=== PATIENT | male | born 1960 | race American Indian/Alaskan Native ===

== ENCOUNTER 2016-08-17 09:31 | Emergency (ER) | payer MEDICAID ==
[2016-08-17 09:31] VITALS: BMI 27.1
[2016-08-17] MEDS ORDERED: Sodium Chloride 0.9% 1,000 ML IV ONE (09:42)
--- NOTE | 2016-08-17 09:48 | C.PDOC ---
History Of Present Illness 55 y/o male pmhx alcohol abuse, HTN, HIV, brain aneurysm presents to the ED with complaints of upper abdominal pain. Pt reports history of pancreatitis, "thinks it's back again." Pt also reports vomiting and diarrhea today. Last drink last night. Denies fever, chills, chest pain, SOB or any other complaints. PSHx defibrillator, craniotomy. Time Seen by Provider: 08/17/16 09:32 Chief Complaint (Nursing): Abdominal Pain History Per: Patient History/Exam Limitations: no limitations Onset/Duration Of Symptoms: Days Current Symptoms Are (Timing): Still Present Severity: Moderate Radiation Of Pain To:: None Quality Of Discomfort: "Pain" Associated Symptoms: Vomiting, Diarrhea. denies: Fever, Chest Pain Exacerbating Factors: None Alleviating Factors: None Recent travel outside of the [place]: No Past Medical History Reviewed: Historical Data, Nursing Documentation, Vital Signs Vital Signs: Last Vital Signs Temp 98.3 F 08/17/16 12:56 Pulse 77 08/17/16 12:56 Resp 20 08/17/16 12:56 BP 151/99 H 08/17/16 12:56 Pulse Ox 100 08/17/16 12:56 - Medical History PMH: CHF, HIV (2005), HTN, Pancreatitis (Chronic) Surgical History: Pacemaker (Left chest wall) - [facility] Procedures ALCOHOL DETOXIFICATION (12/03/01) APPLICATION OF SPLINT (12/06/99) CLOSURE SKIN & SUBCUTANEOUS NEC (09/06/03) CONTINUOUS INVASIVE MECHANICAL VENTILATION <96 CONSEC HRS (11/13/14) DX ULTRASOUND-DIGESTIVE (12/16/11) ENDOSCOP INSERTION OF STENT (TUBE) INTO BILE DUCT (12/16/11) ENDOSCOPIC REMOVAL OF STONE(S) FROM BILIARY TRACT (12/16/11) ESOPHAGOGASTRODUODENOSCOPY [EGD] W/CLOSED BIOPSY (12/16/11) EXCISION OF RIGHT LARGE INTESTINE, ENDO, DIAGN (10/28/15) INCISE CEREBRAL MENINGES (11/13/14) INJECT/INFUSE NEC (09/11/03) INSERT ENDOTRACHEAL TUBE (11/13/14) NEBULIZER THERAPY (01/30/02) SERUM TRANSFUSION NEC (11/13/14) TETANUS TOXOID ADMINIST (09/05/03) Family History: States: Unknown Family Hx - Social History Hx Tobacco Use: Yes Hx Alcohol Use: Yes (Pt stated only on weekends) Hx Substance Use: No (Former use of cocaine) - Immunization History Hx Tetanus Toxoid Vaccination: (not sure) Hx Influenza Vaccination: Yes (2016) Hx Pneumococcal Vaccination: Yes Review Of Systems Constitutional: Negative for: Fever, Chills Cardiovascular: Negative for: Chest Pain Respiratory: Negative for: Shortness of Breath Gastrointestinal: Positive for: Vomiting, Abdominal Pain, Diarrhea Physical Exam - Physical Exam Appears: Non-toxic, No Acute Distress Skin: Warm, Dry, No Rash Head: Atraumatic, Normacephalic Oral Mucosa: Moist Neck: Normal, Normal ROM, Supple Chest: Symmetrical, No Tenderness Cardiovascular: Rhythm Regular, No Murmur Respiratory: Normal Breath Sounds, No Rales, No Rhonchi, No Wheezing Gastrointestinal/Abdominal: Soft, Tenderness (upper abdomen, L>R), No Guarding, No Rebound Extremity: Normal ROM Extremity: Bilateral: Atraumatic Neurological/Psych: Oriented x3, Normal Speech Gait: Steady ED Course And Treatment - Laboratory Results Result Diagrams: 08/17/16 09:56 08/17/16 09:56 Lab Interpretation: No Acute Changes Progress Note: Plan: labs, toradol, zofran, fluids. Treated with additional ativan 1 mg IV and Morphine 4 mg IV. On re-evaluation feeling better, texting on phone in no distress Reassessment Condition: Improved Disposition Counseled Patient/Family Regarding: Studies Performed, Diagnosis, Need For Followup - Disposition Referrals: [facility] [Outside] [facility] [Outside] Disposition: HOME/ ROUTINE Disposition Time: 13:00 Condition: STABLE Additional Instructions: Follow up with PMD or clinic for further evaluation Prescriptions: Famotidine [Pepcid AC] 10 mg PO BID #20 tablet Instructions: Gastroenteritis (ED) - POA Present On Arrival: None - Clinical Impression Clinical Impression: Nausea, Vomiting, Constipation - PA / INSURANCE SPECIAL AGENT / Resident Statement MD/DO has reviewed & agrees with the documentation as recorded. - Scribe Statement The provider has reviewed the documentation as recorded by the Scribsarah Becerril All medical record entries made by the Scribe were at my direction and personally dictated by me. I have reviewed the chart and agree that the record accurately reflects my personal performance of the history, physical exam, medical decision making, and the department course for this patient. I have also personally directed, reviewed, and agree with the discharge instructions and disposition.
[2016-08-17 09:49] VITALS: O2SAT 100
[2016-08-17 09:59] LABS: BASO % 0.4 % (0.0-2.0); EOS % 0.3 % (0.0-4.0); HEMATOCRIT 41.5 % (35.0-51.0); LYMPH # 1.1 K/uL (1.0-4.3); LYMPH % 19.5 % (20.0-40.0); MEAN CORPUSCULAR HGB CONC 33.7 g/dL (33.0-37.0); MEAN PLATELET VOLUME 8.2 fL (7.2-11.7); MONO # 0.6 K/uL (0.0-0.8); MONO % 10.8 % (0.0-10.0); WHITE BLOOD COUNT 5.5 K/uL (4.8-10.8)
[2016-08-17] MEDS ORDERED: Sodium Chloride 0.9% 1,000 ML ONE (09:59)
[2016-08-17 10:07] LABS: CHLORIDE 89 mmol/L (98-107)
[2016-08-17 10:08] LABS: POTASSIUM 4.3 mmol/L (3.6-5.2); SODIUM 135 mmol/L (132-148)
[2016-08-17 10:10] LABS: ALB/GLOB RATIO 1.9 (1.0-2.1); ALKALINE PHOSPHATASE 55 U/L (38-126); AST/SGOT 62 U/L (17-59); BILIRUBIN,TOTAL 0.7 mg/dL (0.2-1.3); BLOOD UREA NITROGEN 7 mg/dL (9-20); CARBON DIOXIDE 34 mmol/L (22-30); GFR AFRICAN-AMERICAN > 60; TOTAL PROTEIN 8.7 g/dL (6.3-8.3)
[2016-08-17 10:11] LABS: ALCOHOL SERUM < 10 mg/dl (0-10); ALT/SGPT 35 U/L (21-72); CALCIUM 9.7 mg/dl (8.6-10.4); GLUCOSE,RANDOM 160 mg/dL (75-110)
[2016-08-17 10:34] LABS: RBC URINE 1 /hpf (0-3); URINE BILIRUBIN NEGATIVE (NEGATIVE); URINE BLOOD NEGATIVE (NEGATIVE); URINE COLOR Yellow (YELLOW); URINE GLUCOSE (UA) 1+ mg/dL (Normal); URINE KETONE NEGATIVE (NEGATIVE); URINE LEUKOCYTE ESTERASE NEG Leu/uL (Negative); URINE PROTEIN 3+ mg/dL (NEGATIVE); URINE UROBILINOGEN NORMAL mg/dL (0.2-1.0); WBC URINE < 1 /hpf (0-5)
[2016-08-17] MEDS ORDERED: Morphine 4 MG/ML VIAL ONE (10:51)
[2016-08-17 12:57] VITALS: BP 151/99; PULSE 77; RESP 20; TEMP 98.3
== END 2016-08-17 13:33 | disposition home or self-care (01) ==
LOC: C.ER 09:31
DX: R11.2 Nausea with vomiting, unspecified (principal); R10.10 Upper abdominal pain, unspecified
CPT/HCPCS: 80053; 80320; 81001; 83690; 85025; 96361; 96374; 96375; 99285; J1885; J2060; J2270; J2405; J7040

== ENCOUNTER 2017-06-30 15:21 | Emergency (ER) | payer MEDICAID ==
[2017-06-30 15:21] VITALS: BMI 23.0
[2017-06-30] MEDS ORDERED: Sodium Chloride 0.9% 1,000 ML IV ONE (16:22)
[2017-06-30] MEDS ORDERED: Morphine 4 MG/ML VIAL ONE (16:44)
[2017-06-30] MEDS ORDERED: Sodium Chloride 0.9% 1,000 ML ONE (16:44)
--- NOTE | 2017-06-30 16:47 | C.PDOC ---
History Of Present Illness 56 y/o male with history of Pancreatitis presents to ED with complaints of abdominal pain with associated nausea developed "hours ago". Patient admits to drinking ETOH everyday and thinks his "pancreatitis is acting up". Patient reports last drink was earlier today and denies fever, chills, diarrhea or any other complaints at this time. Time Seen by Provider: 06/30/17 15:32 Chief Complaint (Nursing): Abdominal Pain History Per: Patient History/Exam Limitations: no limitations Onset/Duration Of Symptoms: Hrs Current Symptoms Are (Timing): Still Present Location Of Pain/Discomfort: Epigastric Past Medical History Reviewed: Historical Data, Nursing Documentation, Vital Signs Vital Signs: Last Vital Signs Temp 97.8 F 06/30/17 18:45 Pulse 68 06/30/17 18:45 Resp 16 06/30/17 18:45 BP 153/89 H 06/30/17 18:45 Pulse Ox 99 07/03/17 07:49 - Medical History PMH: CHF, HIV (2005), HTN, Pancreatitis (Chronic) Surgical History: Pacemaker (Left chest wall) - [facility] Procedures ALCOHOL DETOXIFICATION (12/03/01) APPLICATION OF SPLINT (12/06/99) CLOSURE SKIN & SUBCUTANEOUS NEC (09/06/03) CONTINUOUS INVASIVE MECHANICAL VENTILATION <96 CONSEC HRS (11/13/14) DX ULTRASOUND-DIGESTIVE (12/16/11) ENDOSCOP INSERTION OF STENT (TUBE) INTO BILE DUCT (12/16/11) ENDOSCOPIC REMOVAL OF STONE(S) FROM BILIARY TRACT (12/16/11) ESOPHAGOGASTRODUODENOSCOPY [EGD] W/CLOSED BIOPSY (12/16/11) EXCISION OF RIGHT LARGE INTESTINE, ENDO, DIAGN (10/28/15) INCISE CEREBRAL MENINGES (11/13/14) INJECT/INFUSE NEC (09/11/03) INSERT ENDOTRACHEAL TUBE (11/13/14) NEBULIZER THERAPY (01/30/02) SERUM TRANSFUSION NEC (11/13/14) TETANUS TOXOID ADMINIST (09/05/03) Family History: States: No Known Family Hx - Social History Hx Tobacco Use: Yes Hx Alcohol Use: Yes Hx Substance Use: No (PT DENIES DRUG USE) - Immunization History Hx Tetanus Toxoid Vaccination: (not sure) Hx Influenza Vaccination: No Hx Pneumococcal Vaccination: No Review Of Systems Constitutional: Negative for: Fever, Chills Gastrointestinal: Positive for: Nausea, Abdominal Pain. Negative for: Vomiting , Diarrhea Musculoskeletal: Negative for: Back Pain Skin: Negative for: Rash Physical Exam - Physical Exam Appears: Non-toxic, No Acute Distress Skin: Warm, Dry, No Rash Head: Atraumatic, Normacephalic Oral Mucosa: Moist Neck: Normal ROM, Supple Cardiovascular: Rhythm Regular Respiratory: Normal Breath Sounds, No Rales, No Rhonchi, No Wheezing Gastrointestinal/Abdominal: Soft, Tenderness (Mild epigastric), No Guarding, No Rebound Back: No CVA Tenderness Extremity: Normal ROM, Capillary Refill (<2 seconds) Neurological/Psych: Oriented x3, Normal Speech, Normal Cognition ED Course And Treatment - Laboratory Results Result Diagrams: 06/30/17 17:09 06/30/17 17:09 O2 Sat by Pulse Oximetry: 99 (RA) Pulse Ox Interpretation: Normal Medical Decision Making Medical Decision Making: Plan: Blood work and CXR ordered. Morphine, Zofran, Protonix and IV fluids administered On re-exam, the patient reports improvement of symptoms. Lugs are CTA, heart is RRR, Abdomen is soft, non-tender and the patient is tolerating PO well. Patient was given information about outpatient alcohol detox. Disposition - Disposition Referrals: [facility] [Outside] Disposition: HOME/ ROUTINE Disposition Time: 18:33 Condition: GOOD Additional Instructions: follow up with the medical doctor/clinic within 1-2 days. Return if worsened. Prescriptions: Ondansetron ODT [Zofran ODT] 1 odt PO BID PRN #10 odt PRN Reason: Nausea/Vomiting Instructions: Gastritis Forms: [facility] (Persian) - Clinical Impression Clinical Impression: Epigastric abdominal pain, Alcohol abuse - PA / PRIVATE DUTY NURSE / Resident Statement MD/DO has reviewed & agrees with the documentation as recorded. - Scribe Statement The provider has reviewed the documentation as recorded by the Asiya Felton All medical record entries made by the Asiya were at my direction and personally dictated by me. I have reviewed the chart and agree that the record accurately reflects my personal performance of the history, physical exam, medical decision making, and the department course for this patient. I have also personally directed, reviewed, and agree with the discharge instructions and disposition.
[2017-06-30 17:12] LABS: BASO % 0.3 % (0.0-2.0); EOS % 0.9 % (0.0-4.0); HEMOGLOBIN 11.5 g/dL (12.0-18.0); LYMPH % 50.9 % (20.0-40.0); MEAN CELL VOLUME 97.1 fL (80.0-94.0); MEAN CORPUSCULAR HEMOGLOBIN 32.4 pg (27.0-31.0); MEAN CORPUSCULAR HGB CONC 33.4 g/dL (33.0-37.0); MEAN PLATELET VOLUME 8.3 fL (7.2-11.7); MONO # 0.4 K/uL (0.0-0.8); MONO % 9.9 % (0.0-10.0); NEUT # 1.5 K/uL (1.8-7.0); RBC 3.54 Mil/uL (4.40-5.90); RED CELL DISTRIBUTION WIDTH 14.4 % (11.5-14.5); WHITE BLOOD COUNT 3.9 K/uL (4.8-10.8)
--- NOTE | 2017-06-30 17:17 | RAD ---
PROCEDURE: CHEST RADIOGRAPH, 1 VIEW HISTORY: abd pain COMPARISON: Chest radiograph dated 01/19/2017. FINDINGS: LUNGS: Clear. PLEURA: No pneumothorax or pleural fluid seen. CARDIOVASCULAR: Left subclavian access AICD/ pacemaker redemonstrated. Cardiomediastinal silhouette stably prominent. OSSEOUS STRUCTURES: Unchanged. VISUALIZED UPPER ABDOMEN: Normal. OTHER FINDINGS: None. IMPRESSION: No active disease.
[2017-06-30 17:40] LABS: ALB/GLOB RATIO 1.2 (1.0-2.1); ALT/SGPT 9 U/L (21-72); AST/SGOT 41 U/L (17-59); BLOOD UREA NITROGEN 6 mg/dL (9-20); CALCIUM 8.7 mg/dl (8.6-10.4); GFR AFRICAN-AMERICAN > 60; GFR NON-AFRICAN AMERICAN > 60; LIPASE 33 U/L (23-300)
[2017-06-30 18:57] VITALS: BP 153/89; PULSE 68; RESP 16; TEMP 97.8
[2017-07-03 07:49] VITALS: O2SAT 99
== END 2017-06-30 18:57 | disposition home or self-care (01) ==
LOC: C.ER 15:21
DX: R10.13 Epigastric pain (principal); F10.10 Alcohol abuse, uncomplicated; Y90.9 Presence of alcohol in blood, level not specified
CPT/HCPCS: 71045; 80053; 83690; 85025; 96361; 96374; 96375; 99285; C9113; J2270; J2405; J7040

== ENCOUNTER 2017-07-01 16:12 | Inpatient (IN) | payer MEDICAID ==
[2017-07-01 16:13] VITALS: BMI 23.0
[2017-07-01 16:57] LABS: BASO % 0.4 % (0.0-2.0); EOS % 1.2 % (0.0-4.0); HEMOGLOBIN 12.7 g/dL (12.0-18.0); LYMPH # 1.7 K/uL (1.0-4.3); LYMPH % 48.1 % (20.0-40.0); MEAN CELL VOLUME 97.2 fL (80.0-94.0); MEAN CORPUSCULAR HEMOGLOBIN 33.2 pg (27.0-31.0); MEAN CORPUSCULAR HGB CONC 34.2 g/dL (33.0-37.0); MONO # 0.4 K/uL (0.0-0.8); MONO % 12.1 % (0.0-10.0); NEUT # 1.3 K/uL (1.8-7.0); NEUT % 38.2 % (50.0-75.0); NRBC % 0.1 % (0.0-2.0); RBC 3.82 Mil/uL (4.40-5.90); RED CELL DISTRIBUTION WIDTH 14.7 % (11.5-14.5); WHITE BLOOD COUNT 3.5 K/uL (4.8-10.8)
[2017-07-01 17:15] LABS: ALB/GLOB RATIO 1.2 (1.0-2.1); ALBUMIN 4.1 g/dL (3.5-5.0); ALT/SGPT 9 U/L (21-72); AST/SGOT 44 U/L (17-59); BLOOD UREA NITROGEN 7 mg/dL (9-20); CALCIUM 8.9 mg/dl (8.6-10.4); GFR AFRICAN-AMERICAN > 60; GFR NON-AFRICAN AMERICAN > 60
--- NOTE | 2017-07-01 17:18 | C.PDOC ---
History Of Present Illness 56-year-old male, presents to the emergency department, pre screened for detox from alcohol. Patient called 911, and was brought in by ambulance. Denies any complaints at this time. Chief Complaint (Nursing): Substance Abuse History Per: Patient History/Exam Limitations: no limitations Past Medical History Reviewed: Historical Data, Nursing Documentation, Vital Signs Vital Signs: Last Vital Signs Temp 98.7 F 07/01/17 17:01 Pulse 75 07/01/17 17:01 Resp 16 07/01/17 17:01 BP 120/81 07/01/17 17:01 Pulse Ox 100 07/01/17 17:21 - Medical History PMH: CHF, HIV, HTN, Pancreatitis Denies: Depression, Diabetes, Hepatitis, Chronic Kidney Disease, Seizures, Sexually Transmitted Disease Surgical History: Pacemaker - [facility] Procedures ALCOHOL DETOXIFICATION (12/03/01) APPLICATION OF SPLINT (12/06/99) CLOSURE SKIN & SUBCUTANEOUS NEC (09/06/03) CONTINUOUS INVASIVE MECHANICAL VENTILATION <96 CONSEC HRS (11/13/14) DX ULTRASOUND-DIGESTIVE (12/16/11) ENDOSCOP INSERTION OF STENT (TUBE) INTO BILE DUCT (12/16/11) ENDOSCOPIC REMOVAL OF STONE(S) FROM BILIARY TRACT (12/16/11) ESOPHAGOGASTRODUODENOSCOPY [EGD] W/CLOSED BIOPSY (12/16/11) EXCISION OF RIGHT LARGE INTESTINE, ENDO, DIAGN (10/28/15) INCISE CEREBRAL MENINGES (11/13/14) INJECT/INFUSE NEC (09/11/03) INSERT ENDOTRACHEAL TUBE (11/13/14) NEBULIZER THERAPY (01/30/02) SERUM TRANSFUSION NEC (11/13/14) TETANUS TOXOID ADMINIST (09/05/03) Family History: States: No Known Family Hx - Social History Hx Tobacco Use: Yes Hx Alcohol Use: Yes Hx Substance Use: No - Immunization History Hx Tetanus Toxoid Vaccination: Yes Hx Influenza Vaccination: Yes Hx Pneumococcal Vaccination: Yes Review Of Systems Constitutional: Negative for: Fever, Chills Cardiovascular: Negative for: Chest Pain Respiratory: Negative for: Shortness of Breath Gastrointestinal: Negative for: Vomiting Neurological: Negative for: Weakness, Numbness Psych: Negative for: Psychosis, Suicidal ideation, Withdrawal Physical Exam - Physical Exam Appears: Non-toxic, No Acute Distress, Other (cam and ccooperative. no signs or symptoms indictaive of withdrawal.) Skin: Warm, Dry, No Rash Head: Normacephalic Eye(s): bilateral: PERRL Nose: Normal Oral Mucosa: Moist Lips: Normal Appearing Neck: Normal ROM Cardiovascular: Rhythm Regular, No Murmur Respiratory: Normal Breath Sounds, No Accessory Muscle Use Extremity: Normal ROM, No Deformity, No Swelling Neurological/Psych: Oriented x3, Normal Speech ED Course And Treatment - Laboratory Results Result Diagrams: 07/01/17 16:53 07/01/17 16:53 O2 Sat by Pulse Oximetry: 100 (RA) Pulse Ox Interpretation: Normal Progress Note: Patient is medically cleared and stable to be admitted to Detox for alcohol dependence. Disposition - Disposition Disposition: HOSPITALIZED Disposition Time: 18:42 Condition: STABLE Forms: [facility] (Czech) - Clinical Impression Clinical Impression: Alcohol dependence - Scribe Statement The provider has reviewed the documentation as recorded by the Scribe (Ricardo Phan) All medical record entries made by the Scribe were at my direction and personally dictated by me. I have reviewed the chart and agree that the record accurately reflects my personal performance of the history, physical exam, medical decision making, and the department course for this patient. I have also personally directed, reviewed, and agree with the discharge instructions and disposition. Decision To Admit - Pt Status Changed To: Hospital Disposition Of: Inpatient - Admit Certification Admit to Inpatient:: After my assessment, the patient will require hospitalization for at least two midnights. This is because of the severity of symptoms shown, intensity of services needed, and/or the medical risk in this patient being treated as an outpatient. - InPatient: Physician Admission Certification: I certify that this patient requires 2 or more midnights of care for the following reason:: Patient will need more than 2 days for alcohol detox - . Bed Request Type: Detox Admitting Physician: Binh Cueto Patient Diagnosis: Alcohol dependence
[2017-07-01 17:33] LABS: URINE BILIRUBIN NEGATIVE (NEGATIVE); URINE BLOOD NEGATIVE (NEGATIVE); URINE CLARITY Clear (Clear); URINE COLOR Colorless (YELLOW); URINE GLUCOSE (UA) NORMAL (Normal); URINE LEUKOCYTE ESTERASE NEG Leu/uL (Negative); URINE PROTEIN NEGATIVE (NEGATIVE); URINE UROBILINOGEN NORMAL mg/dL (0.2-1.0)
[2017-07-01 17:41] LABS: BARBITURATES, UR NEGATIVE (NEGATIVE); BENZODIAZEPINES, UR NEGATIVE (NEGATIVE); OPIATES, UR NEGATIVE (NEGATIVE); PHENCYCLIDINE, UR NEGATIVE (NEGATIVE)
--- NOTE | 2017-07-01 19:45 | PCM.BM ---
<Bria Real - Last Filed: 07/01/17 19:44> Treatment Plan Problems - Problems identified on initial assessmt potiential for autonomic instability related to alcohol withdrawal Date Initiated: 07/01/17 Time Initiated: 19:44 Assessment reference: NA Status: Active Treatment assets and liabiliti Patient Assests: adapts well, cooperative, insightful, motivated, ADL independent, good support system, negotiates basic needs Patient Liabilities: live alone, substance abuse, medical problems - Milieu Protocol Maintain good personal hygiene: daily Encourage regular showers, daily Remind patient to perform daily oral care, daily Assist patient to perform ADL's Maintain personal safety: every shift Educate patient to report safety concerns to staff, every shift Monitor environment for contraband/sharps Medication safety: Monitor for expected outcome, potential side effects: every shift, Assess barriers to learning: every shift, Assess readiness for medication education: every shift <Charles Sawyer - Last Filed: 07/03/17 13:26> - Diagnosis (1) Alcohol dependence Status: Acute Interventions: 07/03/17 13:26 * Assess 7x/week regarding severity of withdrawal * Educate regarding risks, benefits, side effects and alternatives of medications * Use Motivational Interviewing for abstinence * Use CBT for relapse prevention * Medication management for withdrawal symptoms * Encourage medication assisted treatment *
[2017-07-02] MEDS: Multiple Vitamins Tab PO SCH (10:54)
[2017-07-02] MEDS: Calcium-Vit D 500 mg-200 Units Tab UD PO SCH (10:55)
[2017-07-02] MEDS: Pantoprazole 40 mg EC Tab PO SCH (10:55)
[2017-07-02] MEDS: Abacavir/Lamivudine 600 mg-300 mg Tab PO SCH (10:55)
[2017-07-02] MEDS: LIPASE/PROTEASE/AMYLASE 4,200 U ECC PO SCH ×3 (10:56→17:03)
[2017-07-02] MEDS: Aluminum Hydroxide/Magnesium Hydroxide Susp (30 mL) PO PRN (13:32)
--- NOTE | 2017-07-02 23:00 | PCM.PSYCH ---
Initial Psychiatric Evaluation - Initial Psychiatric Evaluation Type of Admission: Voluntary Legal Status: Capacity Chief Complaint (in patient's own words): I came here to get help.' History of Present Illness and Precipitating Events: Pt is a 56 year old AA male, who is currently in [facility], came to the ED to get help in alcohol detox. Pt reports he approximately drinks a case of 24 pack of beers (24 oz cans) daily. Pt reports he drank 6 beers today but reports he is constantly drinking every day. Pt denies any history of any inpatient psychiatric hospitalizations and denies any history of an follow up with any psychiatrist. His last detox was at [facility] last year. He reports withdrawal symptoms including sweating, headaches, anxiety, nausea and cramps. However, he denies any feelings of hopelessness and helplessness. He denies any suicidal ideation or homicidal ideation. Patient denies any auditory or visual hallucinations or any psychotic symptoms. Pt denies any history of DTs or seizures. PMH Hx of CHF, HTN, Hx of stroke in 2005, HIV, hx of Pancreatitis Current Medications: Active Medications Generic Name Dose Route Start Last Admin Trade Name Freq PRN Reason Stop Dose Admin Abacavir/Lamivudine 1 tab 07/02/17 10:00 07/02/17 10:55 Epzicom PO 1 tab DAILY JAILYN Administration Protocol Al Hydrox/Mg Hydrox/Simethicone 30 ml 07/01/17 23:10 07/02/17 13:32 Maalox 30 Ml PO 30 ml TID PRN Administration Indigestion / Heartburn Amlodipine Besylate 10 mg 07/02/17 10:00 07/02/17 10:54 Norvasc PO 10 mg DAILY JAILYN Administration Calcium/Vitamin D 1 tab 07/02/17 10:00 07/02/17 10:55 Oyster Shell Calcium/Vitamin D 500 Mg-200 Iu PO 1 tab DAILY JAILYN Administration Carvedilol 25 mg 07/02/17 20:45 07/02/17 21:19 Coreg PO 25 mg BID JAILYN Administration Chlordiazepoxide 25 mg 07/01/17 19:59 07/01/17 20:27 Librium PO 25 mg Q4H PRN Administration Alcohol Withdrawal Chlordiazepoxide 25 mg 07/02/17 00:00 07/02/17 17:03 Librium PO 04/19/18 23:59 25 mg Q6H JAILYN Administration Taper Dolutegravir Sodium 50 mg 07/02/17 10:00 07/02/17 10:55 Tivicay PO 50 mg DAILY JAILYN Administration Protocol Enalapril Maleate 20 mg 07/02/17 20:45 07/02/17 21:19 Vasotec PO 20 mg BID JAILYN Administration Folic Acid 1 mg 07/02/17 10:00 07/02/17 10:55 Folic Acid PO 1 mg DAILY JAILYN Administration Loperamide HCl 2 mg 07/01/17 23:10 Imodium PO Q8 PRN Diarrhea Multivitamins 1 tab 07/02/17 10:00 07/02/17 10:54 Hexavitamin PO 1 tab DAILY JAILYN Administration Ondansetron HCl 4 mg 07/02/17 09:58 Zofran Odt PO BID PRN Nausea/Vomiting Pantoprazole Sodium 40 mg 07/02/17 10:00 07/02/17 10:55 Protonix Ec Tab PO 40 mg DAILY JAILYN Administration Thiamine HCl 100 mg 07/02/17 11:30 07/02/17 12:04 Vitamin B1 Tab PO 100 mg DAILY JAILYN Administration Trazodone HCl 50 mg 07/01/17 19:59 07/02/17 21:19 Desyrel PO 50 mg HS PRN Administration Insomnia Past Psychiatric History - Past Psychiatric History Previous Treatment History: Inpatient Pertinent Medical Hx (Current Medical&Sleep Prob, Allergies): Allergies Allergy/AdvReac Type Severity Reaction Status Date / Time hydromorphone HCl Allergy Severe SWELLING Verified 06/30/17 15:36 [From Dilaudid] meperidine HCl [From Demerol] Allergy Severe SWELLING Verified 06/30/17 15:36 medium chain triglycerides Allergy ITCHING Verified 06/30/17 15:36 [From OmniCT] Abacavir Sulfate/Lamivudine [Abacavir-Lamivudine 600-300 mg] 1 each PO 06/30/17 Calcium Carbonate/Vitamin D3 [Calcium 600 + Vit D Caplet] 1 each PO DAILY Carvedilol [Coreg] 25 mg PO DAILY 06/30/17 Dolutegravir Sodium [Tivicay] 50 mg PO DAILY 06/30/17 Enalapril Maleate [Vasotec] 20 mg PO DAILY 06/30/17 Lipase/Protease/Amylase [Creon 53151 [id number] U] 1 ecc PO 06/30/17 Omeprazole 40 mg PO DAILY 06/30/17 Ondansetron ODT [Zofran ODT] 1 odt PO BID PRN #10 odt 06/30/17 amLODIPine [Norvasc] 10 mg PO DAILY 06/30/17 Review of Systems - Review of Systems All systems: reviewed and no additional remarkable complaints except - Psychiatric Psychiatric: Anxiety, Irritability Mental Status Examination - Personal Presentation Personal Presentation: Looks stated age - Affect Affect: Constricted - Motor Activity Motor Activity: Calm - Reliability in Providing Information Reliability in Providing Information: Good - Speech Speech: Organized - Mood Mood: Anxious - Formal Thought Process Formal Thought Process: No Impairment - Obsessions/Compulsions Obsessions: No Compulsions: No - Cognitive Functions Orientation: Person, Place, Situation, Time Sensorium: Alert Attention/Concentration: Attentive Abstract Thinking: Wykoff Estimate of Intelligence: Below average Judgement: Imparied, as evidence by: Poor judgement, Intact, as evidence by: Good judgement - Risk Risk: Withdrawal, Diminished functioning - Strength & Assets Inventory Strength & Assets Inventory: Family support DSM 5 DX - DSM 5 DSM 5 Diagnosis: Alcohol use disorder severe Alcohol withdrawal - Recommended/Plan of Treatment Treatment Recommendations and Plan of Treatment: Alcohol use disorder severe CBT Psychoeducation Supportive therapy, individual therapy Use [place] for abstinence Alcohol withdrawal CBT Psychoeducation Supportive therapy, individual therapy Librium taper Librium PRN Hx of CHF & HTN Continue prescribed meds HIV Continue prescribed meds Hx of Pancreatitis Continue prescribed meds - Smoking Cessation Smoking Cessation Initiated: No
[2017-07-03] MEDS: LIPASE/PROTEASE/AMYLASE 4,200 U ECC PO SCH ×3 (08:57→17:10)
[2017-07-03] MEDS: Multiple Vitamins Tab PO SCH (09:15)
[2017-07-03] MEDS: Pantoprazole 40 mg EC Tab PO SCH (09:16)
[2017-07-03] MEDS: Abacavir/Lamivudine 600 mg-300 mg Tab PO SCH (09:18)
[2017-07-03] MEDS: Calcium-Vit D 500 mg-200 Units Tab UD PO SCH (09:18)
[2017-07-03] MEDS: Aluminum Hydroxide/Magnesium Hydroxide Susp (30 mL) PO PRN ×2 (11:56→18:20)
--- NOTE | 2017-07-03 16:53 | PCM.PYCHPN ---
Psychiatric Progress Note - Psychiatric Progress Note Patient seen today, length of contact: 16 min Patient Chief Complaint: "OK" Problems Identified/Issues Discussed: The pt is seen, chart reviewed, case discussed with staff. The pt is compliant with medications and reports no side-effects. Symptoms are improving but needs more time to stabilize. After care discussed, support and psychoeducation given. Medication Change: Yes (detox changes daily) Medical Record Reviewed: Yes Mental Status Examination - Cognitive Function Orientation: Person, Place, Situation, Time Memory: Intact Attention: WNL Concentration: WNL Association: WNL Fund of Knowledge: WNL - Mood Mood: Anxious - Affect Affect: Constricted - Speech Speech: Appropriate - Formal Thought Process Formal Thought Process: No Impairment - Suicidal Ideation Suicidal Ideation: No - Homicidal Ideation Homicidal Ideation: No Goal/Treatment Plan - Goal/Treatment Plan Need for Continued Stay: Discharge may exacerbated symptoms, Severe functional impairment Progress Toward Problem(s) and Goals/Treatment Plan: Continue medications Support and psychoeducation daily Attend groups and activities daily After care planning by FELICIANO
[2017-07-04] MEDS: LIPASE/PROTEASE/AMYLASE 4,200 U ECC PO SCH ×3 (08:28→16:22)
[2017-07-04] MEDS: Abacavir/Lamivudine 600 mg-300 mg Tab PO SCH (09:26)
[2017-07-04] MEDS: Calcium-Vit D 500 mg-200 Units Tab UD PO SCH (09:26)
[2017-07-04] MEDS: Pantoprazole 40 mg EC Tab PO SCH (09:26)
[2017-07-04] MEDS: Multiple Vitamins Tab PO SCH (09:26)
[2017-07-04] MEDS: Aluminum Hydroxide/Magnesium Hydroxide Susp (30 mL) PO PRN (11:21)
--- NOTE | 2017-07-04 12:39 | PCM.PYCHPN ---
Psychiatric Progress Note - Psychiatric Progress Note Patient seen today, length of contact: 17 min Patient Chief Complaint: "Better" Problems Identified/Issues Discussed: The pt is seen, chart reviewed, case discussed with staff. Support given, CBT and [place] used briefly No new symptoms reported, improving slowly and needs more time No SEs from medications, risks discussed. After care discussed Medication Change: Yes (detox changes daily) Medical Record Reviewed: Yes Mental Status Examination - Cognitive Function Orientation: Person, Place, Situation, Time Memory: Intact Attention: WNL Concentration: WNL Association: WNL Fund of Knowledge: WNL - Mood Mood: Anxious - Affect Affect: Constricted - Speech Speech: Appropriate - Formal Thought Process Formal Thought Process: No Impairment - Suicidal Ideation Suicidal Ideation: No - Homicidal Ideation Homicidal Ideation: No Goal/Treatment Plan - Goal/Treatment Plan Need for Continued Stay: Discharge may exacerbated symptoms, Severe functional impairment Progress Toward Problem(s) and Goals/Treatment Plan: Continue taper Gabapentin for augmentation if needed As needed medications All risks, benefits and alternatives of the meds discussed, and the pt agreed and understood. Attend groups and activities Supportive therapy and psychoeducation [place] for abstinence CBT for relapse prevention Encourage MAT Refer to rehab or IOP, and self-help groups Smoking cessation with [place] Nicotine patch if needed 34 min
[2017-07-04 16:57] VITALS: RESP 18
[2017-07-05] MEDS: LIPASE/PROTEASE/AMYLASE 4,200 U ECC PO SCH (08:26)
[2017-07-05] MEDS: Multiple Vitamins Tab PO SCH (09:15)
[2017-07-05] MEDS: Calcium-Vit D 500 mg-200 Units Tab UD PO SCH (09:15)
[2017-07-05] MEDS: Pantoprazole 40 mg EC Tab PO SCH (09:16)
[2017-07-05] MEDS: Abacavir/Lamivudine 600 mg-300 mg Tab PO SCH (09:16)
--- NOTE | 2017-07-05 09:48 | PCM.PYCHDC ---
Mental Status Examination - Mental Status Examination Orientation: Person Memory: Intact Mood: Neutral Affect: Broad Speech: Appropriate Attention: WNL Concentration: WNL Association: WNL Fund of Knowledge: WNL Formal Thought Process: No Impairment Suicidal Ideation: No Current Homicidal Ideation?: No Discharge Summary - Discharge Note Reason for Hospitalization: Alcohol Use Disorder detox Consultations:: List each consultation separately and include: 1. Reason for request. 2. Findings. 3. Follow-up Summary of Hospital Course include:: 1. Description of specific treatment plan utilized for patients during their course of treatmen. 2. Summarize the time- course for resolution of acute symptoms and/or regressed behaviors. 3. Describe issues identified and worked on during hospitalization. 4. Describe medication utilized. 5. Describe medical problems identified and treated. 6. Reassessment of suicide risk Summary of Hospital Course: Admission Summary: Pt is a 56 year old AA male, who is currently in [facility], came to the ED to get help in alcohol detox. Pt reports he approximately drinks a case of 24 pack of beers (24 oz cans) daily. Pt reports he drank 6 beers today but reports he is constantly drinking every day. Pt denies any history of any inpatient psychiatric hospitalizations and denies any history of an follow up with any psychiatrist. His last detox was at [facility] last year. He reports withdrawal symptoms including sweating, headaches, anxiety, nausea and cramps. However, he denies any feelings of hopelessness and helplessness. He denies any suicidal ideation or homicidal ideation. Patient denies any auditory or visual hallucinations or any psychotic symptoms. Pt denies any history of DTs or seizures. PMH: Hx of CHF, HTN, Hx of stroke in 2005, HIV, hx of Pancreatitis Hospital Course: The pt was admitted and started on treatment with psychotherapy, support, psychoeducation and medications, including Librium taper, Epzicom, Norvasc 10mg , Coreg 25mg BID, Tivicay 50mg, Vasotec 20mg BID, Neurontin 300mg BID, and Trazodone 50mg HS. [place] and CBT used. The pt attended groups and activities, as well as milieu therapy. All the risks and benefits of medications are discussed and the patient understood and agreed. The pt improved with the treatments provided. After care discussed with the patient. Patient is attending [facility] after discharge. - Diagnosis (1) Alcohol dependence Status: Acute - Final Diagnosis (DSM 5) Condition upon Discharge: STABLE DSM 5: Alcohol use disorder severe Alcohol withdrawal Disposition: HOME/ ROUTINE Follow-up Treatment Plan: Continue below medications following discharge. Follow after care plan as discussed. Use relapse prevention skills. Return to ER or call 911 if suicidal, homicidal or symptoms relapse. Stay away from stress, alcohol, and drugs. See primary doctor regularly and get labs. Prescriptions/Medication Reconciliation: Abacavir Sulfate/Lamivudine [Epzicom] 1 tab PO DAILY #30 tab amLODIPine [Norvasc] 10 mg PO DAILY #30 tab Calcium Carbonate/Vitamin D3 [Calcium 600-Vit D3 400 Caplet] 1 each PO DAILY # 30 tablet Carvedilol [Coreg] 25 mg PO BID #60 tab Dolutegravir Sodium [Tivicay] 50 mg PO DAILY #30 tab Enalapril Maleate [Vasotec] 20 mg PO DAILY #30 tab Gabapentin [Neurontin] 300 mg PO BID #60 cap Multivitamins [Hexavitamin] 1 tab PO DAILY #30 tab Pantoprazole [Protonix EC Tab] 40 mg PO DAILY #30 ect traZODone [Desyrel] 50 mg PO HS PRN #30 tab PRN Reason: Insomnia
[2017-07-05 10:11] VITALS: BP 137/96; PULSE 77; TEMP 97.6; O2SAT 100
== END 2017-07-05 10:15 | disposition home or self-care (01) | DRG 750 ==
LOC: C.ER 16:12 → C.7D 18:44
PROVIDERS: ADMIT Psychiatry & Neurology Psychiatry; ATTEND Psychiatry & Neurology Psychiatry
PROC: HZ2ZZZZ Detoxification Services for Substance Abuse Treatment (ICD-10-PCS; principal; 2017-07-01)
PROC: HZ56ZZZ Individual Psychotherapy for Substance Abuse Treatment, Psychoeducation (ICD-10-PCS; 2017-07-01)
PROC: HZ59ZZZ Individual Psychotherapy for Substance Abuse Treatment, Supportive (ICD-10-PCS; 2017-07-01)
DX: F10.239 Alcohol dependence with withdrawal, unspecified (principal); I11.0 Hypertensive heart disease with heart failure; I50.9 Heart failure, unspecified; F41.9 Anxiety disorder, unspecified; Z79.899 Other long term (current) drug therapy; Z86.73 Personal history of transient ischemic attack (TIA), and cerebral infarction without residual deficits; Z87.891 Personal history of nicotine dependence

== ENCOUNTER 2017-11-29 08:36 | Emergency (ER) | payer MEDICAID ==
[2017-11-29 08:37] VITALS: BMI 23.0
[2017-11-29 09:02] VITALS: PULSE 77; O2SAT 100
[2017-11-29] MEDS ORDERED: Sodium Chloride 0.9% 1,000 ML IV ONE (09:33)
[2017-11-29] MEDS ORDERED: Sodium Chloride 0.9% 1,000 ML ONE (09:50)
[2017-11-29 09:54] LABS: BASO % 0.2 % (0.0-2.0); EOS % 0.2 % (0.0-4.0); LYMPH # 1.1 K/uL (1.0-4.3); LYMPH % 10.9 % (20.0-40.0); MEAN CORPUSCULAR HEMOGLOBIN 33.8 pg (27.0-31.0); MEAN CORPUSCULAR HGB CONC 34.1 g/dL (33.0-37.0); MEAN PLATELET VOLUME 9.3 fL (7.2-11.7); MONO % 9.8 % (0.0-10.0); NEUT # 8.3 K/uL (1.8-7.0); NEUT % 78.9 % (50.0-75.0); RBC 4.13 Mil/uL (4.40-5.90)
[2017-11-29 09:56] LABS: MEAN CELL VOLUME 99.3 fL (80.0-94.0); WHITE BLOOD COUNT 10.6 K/uL (4.8-10.8)
[2017-11-29 09:57] LABS: SQUAMOUS EPITHIAL < 1 /hpf (0-5); URINE BACTERIA RARE (<OCC); URINE BILIRUBIN NEGATIVE (NEGATIVE); URINE BLOOD NEGATIVE (NEGATIVE); URINE CLARITY Hazy (Clear); URINE COLOR Yellow (YELLOW); URINE GLUCOSE (UA) NORMAL (Normal); URINE LEUKOCYTE ESTERASE 1+ Leu/uL (Negative); URINE PROTEIN 2+ mg/dL (NEGATIVE)
[2017-11-29 10:08] LABS: ALB/GLOB RATIO 1.2 (1.0-2.1); ALBUMIN 4.6 g/dL (3.5-5.0); ALT/SGPT 41 U/L (21-72); AST/SGOT 89 U/L (17-59); BLOOD UREA NITROGEN 9 mg/dL (9-20); CALCIUM 9.9 mg/dl (8.6-10.4); GFR NON-AFRICAN AMERICAN > 60; LIPASE 43 U/L (23-300)
--- NOTE | 2017-11-29 10:11 | C.PDOC ---
History Of Present Illness 57 year old male with a PMHx of pancreatitis and HIV presents to ED with upper abdominal pain associated with vomiting that began 3 days ago. Patient admits to ETOH use. Patient denies fever, chills, and other associated symptoms. Patient has history of chronic pancreatitis Time Seen by Provider: 11/29/17 09:08 Chief Complaint (Nursing): Abdominal Pain History Per: Patient History/Exam Limitations: no limitations Onset/Duration Of Symptoms: Days Current Symptoms Are (Timing): Still Present Location Of Pain/Discomfort: RUQ Radiation Of Pain To:: None Quality Of Discomfort: Unable To Describe Associated Symptoms: denies: Fever, Chills Exacerbating Factors: None Alleviating Factors: None Recent travel outside of the [place]: No Past Medical History Reviewed: Historical Data, Nursing Documentation, Vital Signs Vital Signs: Last Vital Signs Temp 98.2 F 11/29/17 11:49 Pulse 77 11/29/17 11:49 Resp 18 11/29/17 11:49 BP 128/82 11/29/17 11:49 Pulse Ox 100 11/29/17 11:49 - Medical History PMH: Atrial Fibrillation, CHF, HIV, HTN, Pancreatitis Denies: Depression, Diabetes, Hepatitis, Chronic Kidney Disease, Seizures, Sexually Transmitted Disease Surgical History: Pacemaker - [facility] Procedures ALCOHOL DETOXIFICATION (12/03/01) APPLICATION OF SPLINT (12/06/99) CLOSURE SKIN & SUBCUTANEOUS NEC (09/06/03) CONTINUOUS INVASIVE MECHANICAL VENTILATION <96 CONSEC HRS (11/13/14) DETOXIFICATION SERVICES FOR SUBSTANCE ABUSE TREATMENT (07/01/17) DX ULTRASOUND-DIGESTIVE (12/16/11) ENDOSCOP INSERTION OF STENT (TUBE) INTO BILE DUCT (12/16/11) ENDOSCOPIC REMOVAL OF STONE(S) FROM BILIARY TRACT (12/16/11) ESOPHAGOGASTRODUODENOSCOPY [EGD] W/CLOSED BIOPSY (12/16/11) EXCISION OF RIGHT LARGE INTESTINE, ENDO, DIAGN (10/28/15) INCISE CEREBRAL MENINGES (11/13/14) INDIV PSYCHOTHERAPY FOR SUBSTANCE ABUSE TREATMENT, SUPPORT (07/01/17) INDIV PSYCHOTHERAPY FOR SUBSTANCE ABUSE, PSYCHOEDUCATION (07/01/17) INJECT/INFUSE NEC (09/11/03) INSERT ENDOTRACHEAL TUBE (11/13/14) NEBULIZER THERAPY (01/30/02) SERUM TRANSFUSION NEC (11/13/14) TETANUS TOXOID ADMINIST (09/05/03) Family History: States: Unknown Family Hx - Social History Hx Tobacco Use: Yes Hx Alcohol Use: Yes Hx Substance Use: No - Immunization History Hx Tetanus Toxoid Vaccination: Yes Hx Influenza Vaccination: Yes Hx Pneumococcal Vaccination: Yes Review Of Systems Constitutional: Negative for: Fever, Chills Cardiovascular: Negative for: Chest Pain Respiratory: Negative for: Cough Gastrointestinal: Positive for: Vomiting, Abdominal Pain (right abdominal pain) Neurological: Negative for: Weakness, Numbness Physical Exam - Physical Exam Appears: Non-toxic Skin: Normal Color, Warm, Dry Head: Atraumatic, Normacephalic Eye(s): bilateral: Normal Inspection Oral Mucosa: Moist Neck: Normal, Supple Chest: Symmetrical, No Tenderness Cardiovascular: Rhythm Regular Respiratory: Normal Breath Sounds, No Rales, No Rhonchi, No Wheezing Gastrointestinal/Abdominal: Soft, Tenderness (to the right upper quadrant), No Distention, No Guarding, No Rebound Back: No CVA Tenderness Extremity: Normal ROM (x4) Neurological/Psych: Oriented x3, Normal Speech Gait: Steady ED Course And Treatment - Laboratory Results Result Diagrams: 11/29/17 09:46 11/29/17 09:46 Lab Interpretation: No Acute Changes O2 Sat by Pulse Oximetry: 100 (RA) Pulse Ox Interpretation: Normal - CT Scan/US No standard instances Other Rad Studies (CT/US): Read By Radiologist, Radiology Report Reviewed CT/US Interpretation: FINDINGS: There is limited evaluation of the solid organs without the administration of IV contrast. LOWER THORAX: No visible consolidation, pleural effusion, or pneumothorax. Small hiatal hernia/distal esophageal wall thickening. LIVER: Hypodensity within the right anterior hepatic lobe, possibly focal fatty infiltration. GALLBLADDER AND BILE DUCTS: Contracted gallbladder limits evaluation. Otherwise unremarkable. PANCREAS: Innumerable coarse calcifications suggestive of chronic pancreatitis. Pancreatic atrophy. Dilated ectatic pancreatic duct measuring approximately 6 mm in diameter. SPLEEN: Unremarkable. ADRENALS: Unremarkable. KIDNEYS AND URETERS: No hydronephrosis or obstructing renal calculus. BLADDER: Thick- walled urinary bladder may be exaggerated by under distension. REPRODUCTIVE: Unremarkable. APPENDIX: The appendix appears within normal limits of caliber. No secondary signs of acute appendicitis. BOWEL: The stomach is nondistended. Lack of oral contrast limits evaluation for bowel pathology. The bowel loops appear within normal limits of caliber without evidence of intestinal obstruction. PERITONEUM: No significant free fluid. No definite free air. LYMPH NODES: No bulky lymphadenopathy identified. VASCULATURE: Atherosclerotic calcifications of the aorta. No aortic aneurysm. BONES: Degenerative changes. OTHER FINDINGS: Small fat containing umbilical hernia. IMPRESSION: Findings described above appear consistent with chronic pancreatitis. No evidence to suggest acute on chronic pancreatitis. Recommend correlation with amylase and lipase. Mild wall thickening of the urinary bladder may be exaggerated by under distension. Correlate clinically for possibility of cystitis including urinalysis results. 1.6 cm low-density left renal lesion, possibly cyst. Hypodensity within the right anterior hepatic lobe , possibly focal fatty infiltration. Additional findings as above. Progress Note: Treated with IVF NSS. On re-evaluation abdomen soft non-tender Reassessment Condition: Improved Medical Decision Making Medical Decision Making: Impression: tenderness to right abdominal pain Plan: --Blood work sent. --CT abd/pel ordered. Disposition Counseled Patient/Family Regarding: Studies Performed, Diagnosis, Need For Followup - Disposition Referrals: [facility] [Outside] [facility] [Outside] [facility] [Outside] Disposition: HOME/ ROUTINE Disposition Time: 11:40 Condition: STABLE Instructions: Chronic Pancreatitis, Acute Abdomen (Belly Pain) Forms: [employer] (Maltese) - POA Present On Arrival: None - Clinical Impression Clinical Impression: Abdominal pain, Chronic pancreatitis - PA / RACK LOADER / Resident Statement MD/DO has reviewed & agrees with the documentation as recorded. - Scribe Statement The provider has reviewed the documentation as recorded by the Scribe (Marianna Mirza) All medical record entries made by the Scribe were at my direction and personally dictated by me. I have reviewed the chart and agree that the record accurately reflects my personal performance of the history, physical exam, medical decision making, and the department course for this patient. I have also personally directed, reviewed, and agree with the discharge instructions and disposition.
--- NOTE | 2017-11-29 10:40 | CT ---
PROCEDURE: CT Abdomen and Pelvis without Oral or IV contrast. HISTORY: Pain COMPARISON: CT abdomen and pelvis performed 10/28/15 TECHNIQUE: Contiguous axial images of the abdomen and pelvis. No oral or IV contrast administered. Coronal and Sagittal reformats generated and reviewed. Radiation dose: Total exam DLP = 322.57 mGy-cm. This CT exam was performed using one or more of the following dose reduction techniques: Automated exposure control, adjustment of the mA and/or kV according to patient size, and/or use of iterative reconstruction technique. FINDINGS: There is limited evaluation of the solid organs without the administration of IV contrast. LOWER THORAX: No visible consolidation, pleural effusion, or pneumothorax. Small hiatal hernia/distal esophageal wall thickening. LIVER: Hypodensity within the right anterior hepatic lobe, possibly focal fatty infiltration. GALLBLADDER AND BILE DUCTS: Contracted gallbladder limits evaluation. Otherwise unremarkable. PANCREAS: Innumerable coarse calcifications suggestive of chronic pancreatitis. Pancreatic atrophy. Dilated ectatic pancreatic duct measuring approximately 6 mm in diameter. SPLEEN: Unremarkable. ADRENALS: Unremarkable. KIDNEYS AND URETERS: No hydronephrosis or obstructing renal calculus. BLADDER: Thick-walled urinary bladder may be exaggerated by under distension. REPRODUCTIVE: Unremarkable. APPENDIX: The appendix appears within normal limits of caliber. No secondary signs of acute appendicitis. BOWEL: The stomach is nondistended. Lack of oral contrast limits evaluation for bowel pathology. The bowel loops appear within normal limits of caliber without evidence of intestinal obstruction. PERITONEUM: No significant free fluid. No definite free air. LYMPH NODES: No bulky lymphadenopathy identified. VASCULATURE: Atherosclerotic calcifications of the aorta. No aortic aneurysm. BONES: Degenerative changes. OTHER FINDINGS: Small fat containing umbilical hernia. IMPRESSION: Findings described above appear consistent with chronic pancreatitis. No evidence to suggest acute on chronic pancreatitis. Recommend correlation with amylase and lipase. Mild wall thickening of the urinary bladder may be exaggerated by under distension. Correlate clinically for possibility of cystitis including urinalysis results. 1.6 cm low-density left renal lesion, possibly cyst. Hypodensity within the right anterior hepatic lobe, possibly focal fatty infiltration. Additional findings as above.
[2017-11-29 11:49] VITALS: BP 128/82; RESP 18; TEMP 98.2
== END 2017-11-29 12:09 | disposition home or self-care (01) ==
LOC: C.ER 08:36
DX: K86.1 Other chronic pancreatitis (principal); R10.10 Upper abdominal pain, unspecified; I48.91 Unspecified atrial fibrillation; I50.9 Heart failure, unspecified; I10 Essential (primary) hypertension; Z95.0 Presence of cardiac pacemaker; Z72.0 Tobacco use
CPT/HCPCS: 74176; 80053; 80320; 81001; 83690; 85025; 96361; 96374; 96375; 99283; J1885; J2405; J7030

== ENCOUNTER 2018-03-18 21:15 | Inpatient (IN) | payer MEDICAID ==
[2018-03-18 21:15] VITALS: BMI 23.0
--- NOTE | 2018-03-18 21:41 | C.PDOC ---
History Of Present Illness Patient is a 57 year old male presents to the ED requesting alcohol detox. Patient was prescreened. Patient denies SI//HI, hallucinations, or any other medical complaints at the moment. <Shekhar Telles - Last Filed: 03/18/18 23:49> History Per: Patient History/Exam Limitations: intoxication Onset/Duration Of Symptoms: Hrs Current Symptoms Are (Timing): Still Present Suicide/Self Injury Attempted (Context): None Modifying Factor(s): Alcohol Associated Symptoms: denies: Depression, Suicidal Thoughts, Suicidal Plan Involuntary Hold By: None Additional History Per: Patient <Shekhar Telles - Last Filed: 03/18/18 23:49> <Fiona Castorena - Last Filed: 03/19/18 00:38> Time Seen by Provider: 03/18/18 21:37 Chief Complaint (Nursing): Substance Abuse Past Medical History Reviewed: Historical Data, Nursing Documentation, Vital Signs Vital Signs: Last Vital Signs Temp 97.4 F L 03/18/18 21:27 Pulse 86 03/18/18 21:27 Resp 18 03/18/18 21:27 BP 141/107 H 03/18/18 21:27 Pulse Ox 100 03/18/18 21:27 - Medical History PMH: Atrial Fibrillation, CHF, HIV, HTN, Pancreatitis Denies: Depression, Diabetes, Hepatitis, Chronic Kidney Disease, Seizures, Sexually Transmitted Disease Surgical History: Pacemaker - [facility] Procedures ALCOHOL DETOXIFICATION (12/03/01) APPLICATION OF SPLINT (12/06/99) CLOSURE SKIN & SUBCUTANEOUS NEC (09/06/03) CONTINUOUS INVASIVE MECHANICAL VENTILATION <96 CONSEC HRS (11/13/14) DETOXIFICATION SERVICES FOR SUBSTANCE ABUSE TREATMENT (07/01/17) DX ULTRASOUND-DIGESTIVE (12/16/11) ENDOSCOP INSERTION OF STENT (TUBE) INTO BILE DUCT (12/16/11) ENDOSCOPIC REMOVAL OF STONE(S) FROM BILIARY TRACT (12/16/11) ESOPHAGOGASTRODUODENOSCOPY [EGD] W/CLOSED BIOPSY (12/16/11) EXCISION OF RIGHT LARGE INTESTINE, ENDO, DIAGN (10/28/15) INCISE CEREBRAL MENINGES (11/13/14) INDIV PSYCHOTHERAPY FOR SUBSTANCE ABUSE TREATMENT, SUPPORT (07/01/17) INDIV PSYCHOTHERAPY FOR SUBSTANCE ABUSE, PSYCHOEDUCATION (07/01/17) INJECT/INFUSE NEC (09/11/03) INSERT ENDOTRACHEAL TUBE (11/13/14) NEBULIZER THERAPY (01/30/02) SERUM TRANSFUSION NEC (11/13/14) TETANUS TOXOID ADMINIST (09/05/03) Family History: States: Unknown Family Hx - Social History Hx Tobacco Use: Yes Hx Alcohol Use: Yes Hx Substance Use: No - Immunization History Hx Tetanus Toxoid Vaccination: No Hx Influenza Vaccination: No Hx Pneumococcal Vaccination: No <Shekhar Telles - Last Filed: 03/18/18 23:49> Vital Signs: Last Vital Signs Temp 97.6 F 03/18/18 22:49 Pulse 76 03/18/18 22:49 Resp 18 03/18/18 22:49 BP 143/85 03/18/18 22:49 Pulse Ox 100 03/18/18 23:49 - [facility] Procedures ALCOHOL DETOXIFICATION (12/03/01) APPLICATION OF SPLINT (12/06/99) CLOSURE SKIN & SUBCUTANEOUS NEC (09/06/03) CONTINUOUS INVASIVE MECHANICAL VENTILATION <96 CONSEC HRS (11/13/14) DETOXIFICATION SERVICES FOR SUBSTANCE ABUSE TREATMENT (07/01/17) DX ULTRASOUND-DIGESTIVE (12/16/11) ENDOSCOP INSERTION OF STENT (TUBE) INTO BILE DUCT (12/16/11) ENDOSCOPIC REMOVAL OF STONE(S) FROM BILIARY TRACT (12/16/11) ESOPHAGOGASTRODUODENOSCOPY [EGD] W/CLOSED BIOPSY (12/16/11) EXCISION OF RIGHT LARGE INTESTINE, ENDO, DIAGN (10/28/15) INCISE CEREBRAL MENINGES (11/13/14) INDIV PSYCHOTHERAPY FOR SUBSTANCE ABUSE TREATMENT, SUPPORT (07/01/17) INDIV PSYCHOTHERAPY FOR SUBSTANCE ABUSE, PSYCHOEDUCATION (07/01/17) INJECT/INFUSE NEC (09/11/03) INSERT ENDOTRACHEAL TUBE (11/13/14) NEBULIZER THERAPY (01/30/02) SERUM TRANSFUSION NEC (11/13/14) TETANUS TOXOID ADMINIST (09/05/03) <Fiona Castorena - Last Filed: 03/19/18 00:38> Review Of Systems Except As Marked, All Systems Reviewed And Found Negative. Psych: Negative for: Depression, Suicidal ideation <Shekhar Telles - Last Filed: 03/18/18 23:49> Physical Exam - Physical Exam Additional Physical Exam Comments: Constitutional: No acute distress. Head: Normocephalic. Atraumatic. Eyes: PERRL. ENT: Moist mucous membranes. Neck: Supple. Cardiovascular: Regular rate. Radial pulses 2+ bilaterally. Chest: No tenderness. Respiratory: Clear to auscultation bilaterally. GI: Soft. Nontender. Nondistended. Back: No CVA tenderness. Musculoskeletal: No tenderness or swelling of extremities. Skin: No rash. Neurologic: Alert, no focal deficit. <Shekhar Telles - Last Filed: 03/18/18 23:49> ED Course And Treatment - Laboratory Results Result Diagrams: 03/18/18 22:03 03/18/18 22:03 O2 Sat by Pulse Oximetry: 100 (on RA) Pulse Ox Interpretation: Normal <Shekhar Telles - Last Filed: 03/18/18 23:49> - Laboratory Results Result Diagrams: 03/18/18 22:03 03/18/18 22:03 Progress Note: 12:21 - Patient accepted by Dr. Cueto for alcohol detox admission. Patient is resting comfortably on stretcher, mildly intoxicated but awake and alert. <Fiona Castorena - Last Filed: 03/19/18 00:38> Medical Decision Making Medical Decision Making: Plan: * Bloodwork * UA * Crisis Evaluation EKG: * NSR 80 bpm * No ST/T changes Pending sobriety prior to Detox evaluation. Signed out to ED night team. <Shekhar Telles - Last Filed: 03/18/18 23:49> Disposition <Shekhar Telles - Last Filed: 03/18/18 23:49> - Disposition Disposition Time: 00:21 <Fiona Castorena - Last Filed: 03/19/18 00:38> - Disposition Disposition: HOSPITALIZED Condition: STABLE - Clinical Impression Clinical Impression: Alcohol dependence - Scribe Statement The provider has reviewed the documentation as recorded by the Scribe Provider Attestation: [place] Tee All medical record entries made by the Scribe were at my direction and personally dictated by me. I have reviewed the chart and agree that the record accurately reflects my personal performance of the history, physical exam, medical decision making, and the department course for this patient. I have also personally directed, reviewed, and agree with the discharge instructions and disposition. <Shekhar Telles Filed: 03/18/18 23:49>
[2018-03-18 22:06] LABS: BASO % 0.3 % (0.0-2.0); EOS # 0.1 K/uL (0.0-0.7); EOS % 0.9 % (0.0-4.0); HEMOGLOBIN 13.6 g/dL (12.0-18.0); LYMPH # 3.3 K/uL (1.0-4.3); LYMPH % 52.2 % (20.0-40.0); MEAN CORPUSCULAR HEMOGLOBIN 32.4 pg (27.0-31.0); MEAN CORPUSCULAR HGB CONC 34.3 g/dL (33.0-37.0); MEAN PLATELET VOLUME 7.6 fL (7.2-11.7); MONO # 0.6 K/uL (0.0-0.8); MONO % 9.1 % (0.0-10.0); NEUT # 2.3 K/uL (1.8-7.0); NEUT % 37.5 % (50.0-75.0); NRBC % 0.1 % (0.0-2.0); RBC 4.21 Mil/uL (4.40-5.90); RED CELL DISTRIBUTION WIDTH 13.3 % (11.5-14.5); WHITE BLOOD COUNT 6.3 K/uL (4.8-10.8)
[2018-03-18 22:07] LABS: MEAN CELL VOLUME 94.2 fL (80.0-94.0)
[2018-03-18 22:18] LABS: ALB/GLOB RATIO 1.6 (1.0-2.1); ALBUMIN 4.4 g/dL (3.5-5.0); ALT/SGPT 25 U/L (21-72); AST/SGOT 72 U/L (17-59); BLOOD UREA NITROGEN 9 mg/dL (9-20); CALCIUM 7.8 mg/dl (8.6-10.4); LIPASE 81 U/L (23-300)
[2018-03-18 22:30] LABS: GFR NON-AFRICAN AMERICAN > 60
[2018-03-18 23:05] LABS: URINE BILIRUBIN NEGATIVE (NEGATIVE); URINE BLOOD NEGATIVE (NEGATIVE); URINE CLARITY Clear (Clear); URINE COLOR Colorless (YELLOW); URINE GLUCOSE (UA) NORMAL (Normal); URINE LEUKOCYTE ESTERASE NEG Leu/uL (Negative); URINE PROTEIN NEGATIVE (NEGATIVE); URINE UROBILINOGEN NORMAL mg/dL (0.2-1.0)
[2018-03-18 23:14] LABS: BARBITURATES, UR NEGATIVE (NEGATIVE); BENZODIAZEPINES, UR NEGATIVE (NEGATIVE); OPIATES, UR NEGATIVE (NEGATIVE); PHENCYCLIDINE, UR NEGATIVE (NEGATIVE)
--- NOTE | 2018-03-19 01:29 | PCM.BM ---
<Jamir Gusman Cam - Last Filed: 03/19/18 16:17> - Diagnosis (1) Alcohol use disorder, severe, dependence Status: Acute Interventions: 03/19/18 16:18 * Assess 7x/week regarding severity of withdrawal * Educate regarding risks, benefits, side effects and alternatives of medications * Use Motivational Interviewing for abstinence * Use CBT for relapse prevention * Medication management for withdrawal symptoms * Encourage medication assisted treatment <Pio Siddiqi - Last Filed: 03/21/18 22:22> Treatment Plan Problems - Problems identified on initial assessmt knowledge deficit r/t alcohol use Date Initiated: 03/19/18 Time Initiated: : Assessment reference: NA Status: Active defensive coping Date Initiated: 04/19/17 Time Initiated: Assessment reference: NA Status: Active Treatment assets and liabiliti Patient Assests: adapts well, cooperative, insightful, motivated, ADL independent, good support system, negotiates basic needs, cognitively intact, good interpersonal skills Patient Liabilities: substance abuse - Milieu Protocol Maintain good personal hygiene: daily Encourage regular showers, daily Remind patient to perform daily oral care, daily Assist patient to perform ADL's Maintain personal safety: every shift Educate patient to report safety concerns to staff, every shift Monitor environment for contraband/sharps Medication safety: Monitor for expected outcome, potential side effects: every shift, Assess barriers to learning: every shift, Assess readiness for medication education: every shift <Justine Harris - Last Filed: 03/22/18 09:33> Treatment Plan Problems - Problems identified on initial assessmt knowledge deficit r/t alcohol use Date Initiated: 03/19/18 Time Initiated: 29 Assessment reference: NA Status: Active defensive coping Date Initiated: 04/19/17 Time Initiated: Assessment reference: NA Status: Active potential for alcohol withdrawal Date Initiated: 03/19/18 Time Initiated: Assessment reference: NA Status: Active Family Contact Family involvement: Famliy/SO not involved - Goals for Treatment Patient goals for treatment: Complete detox and apply for long-term rehab. Discharge/Continuing Care - Education Needs Education Needs: Patient Medication, Patient Diagnosis/Disease Process, Patient Coping Skills, Patient Anger Management skills, Patient Placement options, Patient Community resources - Discharge Discharge Criteria: No longer exhibiting s/s of withdrawal, Reduction of target symptoms Discharge to:: Substance Abuse Rehab - Treatment Team Participation Patient/Family/SO Statement: 03/22/18 09:33 "I wanna try to go [facility]." Discussed with Family/SO: No Was Patient/Family/SO present at Treatment Team Meeting: Yes
--- NOTE | 2018-03-19 11:51 | CARD ---
APPROVED REPORT Date of service: 03/18/2018 EKG Measurement Heart [id number] NC 192P [id number] <Conclusion> Normal sinus rhythm Left axis deviation Abnormal ECG
[2018-03-19] MEDS: Multiple Vitamins Tab PO SCH (12:07)
[2018-03-19] MEDS: Abacavir/Lamivudine 600 mg-300 mg Tab PO SCH (14:52)
[2018-03-19] MEDS: Pantoprazole 40 mg EC Tab PO SCH (14:53)
--- NOTE | 2018-03-19 16:27 | PCM.PSYCH ---
Initial Psychiatric Evaluation - Initial Psychiatric Evaluation Type of Admission: Voluntary Legal Status: Capacity Chief Complaint (in patient's own words): I'm here for treatment of alcohol use. History of Present Illness and Precipitating Events: Patient is a 57 years old, , currently unemployed, -[place] male with no previous psychiatric history was admitted due to withdrawing from alcohol. Alcohol: Patient started using alcohol at 17 years of age, increased gradually. Currently he was using 5-6 cans of beer daily each of 24 ounces. Last drink was yesterday. History of 2 detox but no rehabs. History of cocaine use in the past. Last used cocaine 2005. Patient quit smoking 3-4 years ago.. Patient has permanent defibrillator and history of cranial aneurysm repair. Patient was born in [place] and has high school graduation. Patient is not working for last 1 week. Was working as an motor electrician. He is . Has 2 grown up children. Lives alone. His height is 5 feet 10 inches and weight is 160 pounds. Current Medications: Active Medications Generic Name Dose Route Start Last Admin Trade Name Freq PRN Reason Stop Dose Admin Abacavir/Lamivudine 1 tab 03/19/18 15:30 03/19/18 14:52 Epzicom PO 1 tab DAILY JAILYN Administration Protocol Amlodipine Besylate 10 mg 03/19/18 15:30 03/19/18 14:52 Norvasc PO 10 mg DAILY JAILYN Administration Carvedilol 25 mg 03/19/18 18:00 Coreg PO BID JAILYN Chlordiazepoxide 25 mg 03/19/18 06:00 03/19/18 12:07 Librium PO 03/23/18 05:59 25 mg Q6 JAILYN Administration Taper Chlordiazepoxide 25 mg 03/19/18 01:25 03/19/18 01:45 Librium PO 25 mg Q4H PRN Administration Alcohol Withdrawal Clonidine HCl 0.1 mg 03/19/18 00:43 Catapres PO Q6 PRN Symptoms of alcohol withdrawl Dicyclomine HCl 10 mg 03/19/18 00:45 Bentyl PO Q6 PRN Muscle spasm Dolutegravir Sodium 50 mg 03/19/18 15:30 03/19/18 14:52 Tivicay PO 50 mg DAILY JAILYN Administration Protocol Enalapril Maleate 20 mg 03/19/18 18:00 Vasotec PO BID JAILYN Folic Acid 1 mg 03/19/18 11:30 03/19/18 12:07 Folic Acid PO 1 mg DAILY JAILYN Administration Gabapentin 300 mg 03/19/18 14:00 03/19/18 13:24 Neurontin PO 300 mg TID JAILYN Administration Hydroxyzine HCl 50 mg 03/19/18 00:44 03/19/18 01:45 Atarax PO 50 mg Q6 PRN Administration Anxiety Ibuprofen 600 mg 03/19/18 00:44 Motrin Tab PO Q6 PRN Pain, moderate (4-7) Multivitamins 1 tab 03/19/18 11:30 03/19/18 12:07 Hexavitamin PO 1 tab DAILY JAILYN Administration Pantoprazole Sodium 40 mg 03/19/18 15:30 03/19/18 14:53 Protonix Ec Tab PO 40 mg DAILY JAILYN Administration Rosuvastatin Calcium 10 mg 03/19/18 22:00 Crestor PO HS JAILYN Thiamine HCl 100 mg 03/19/18 11:30 03/19/18 12:07 Vitamin B1 Tab PO 100 mg DAILY JAILYN Administration Trazodone HCl 100 mg 03/19/18 00:42 03/19/18 01:45 Desyrel PO 100 mg HS PRN Administration Insomnia Past Psychiatric History - Past Psychiatric History Previous Treatment History: [facility]: At [facility]3]. History of Abuse: None reported History of ETOH/Drug Use: See HPI History of Family Illness: According to history patient's father has history of alcoholism in sister has history of drug use. Also that alcoholism runs in the family. Pertinent Medical Hx (Current Medical&Sleep Prob, Allergies): Allergies Allergy/AdvReac Type Severity Reaction Status Date / Time hydromorphone HCl Allergy Severe SWELLING Verified 03/18/18 21:31 [From Dilaudid] meperidine HCl [From Demerol] Allergy Severe SWELLING Verified 03/18/18 21:31 medium chain triglycerides Allergy ITCHING Verified 03/18/18 21:31 [From OmniCT] Carvedilol [Coreg] 25 mg PO DAILY 06/30/17 Enalapril Maleate [Vasotec] 20 mg PO BID 06/30/17 Lipase/Protease/Amylase [Creon 83523 [id number] U] 1 ecc PO DAILY 06/30/17 Omeprazole 40 mg PO DAILY 06/30/17 Ondansetron ODT [Zofran ODT] 1 odt PO BID PRN #10 odt 06/30/17 Abacavir Sulfate/Lamivudine [Epzicom] 1 tab PO DAILY #30 tab 07/05/17 Calcium Carbonate/Vitamin D3 [Calcium 600-Vit D3 400 Caplet] 1 each PO DAILY #30 tablet 07/05/17 Carvedilol [Coreg] 25 mg PO BID #60 tab 07/05/17 Dolutegravir Sodium [Tivicay] 50 mg PO DAILY #30 tab 07/05/17 Gabapentin [Neurontin] 300 mg PO BID #60 cap 07/05/17 Multivitamins [Hexavitamin] 1 tab PO DAILY #30 tab 07/05/17 amLODIPine [Norvasc] 10 mg PO DAILY #30 tab 07/05/17 traZODone [Desyrel] 50 mg PO HS PRN #30 tab 07/05/17 Famotidine [Pepcid] 1 tab PO BID #14 tab 07/21/17 Ibuprofen [Motrin] 1 tab PO Q6 #30 tab 07/21/17 valACYclovir [Valtrex] 1 gm PO DAILY 10/06/17 Famotidine [Pepcid] 20 mg PO BID PRN #24 tab 10/07/17 Naproxen [Naprosyn] 500 mg PO BID #20 tablet 02/10/18 HIV Hypertension Pancreatitis CHF History of stroke with left hand weakness. Review of Systems - Psychiatric Psychiatric: As Per HPI, Anxiety Mental Status Examination - Personal Presentation Personal Presentation: Looks stated age - Affect Affect: Other (Appropriate) - Motor Activity Motor Activity: Calm - Reliability in Providing Information Reliability in Providing Information: Fair - Speech Speech: Organized - Mood Mood: Anxious - Formal Thought Process Formal Thought Process: No Impairment - Hallucinations/Delusions Hallucinations: Other (None reported) Delusions: Other - Obsessions/Compulsions Obsessions: None Compulsions: None - Cognitive Functions Orientation: Person, Place, Situation, Time Sensorium: Alert Attention/Concentration: Attentive Abstract Thinking: [place] Estimate of Intelligence: Average Judgement: Intact, as evidence by: Insight regarding need for hospitalization Memory: Recent intact, as evidence by: Ability to recall events of the day, Remote intact, as evidenced by: Ability to recall historical events - Risk Risk: Withdrawal, Diminished functioning - Strength & Assets Inventory Strength & Assets Inventory: Skills, Cooperative - Limitations Limitations: Living alone DSM 5 DX - DSM 5 DSM 5 Diagnosis: Alcohol withdrawal. Alcohol use disorder severe - Recommended/Plan of Treatment Treatment Recommendations and Plan of Treatment: Patient education. Supportive therapy. CBT for relapse prevention. [place] for abstinence. Methadone for opiate withdrawal symptoms. Medications for his medical illnesses. Other when necessary medications. Patient wants to go to a local intermodal truck driver rehabilitation for follow-up care after discharge from the hospital. Projected ELOS: 4-5 days - Smoking Cessation Smoking Cessation Initiated: No Reason for not providing: Patient doesn't smoke cigarettes.
[2018-03-20] MEDS: Multiple Vitamins Tab PO SCH (09:29)
[2018-03-20] MEDS: Pantoprazole 40 mg EC Tab PO SCH (09:30)
[2018-03-20] MEDS: Abacavir/Lamivudine 600 mg-300 mg Tab PO SCH (09:36)
[2018-03-20] MEDS: LIPASE/PROTEASE/AMYLASE 21,000 U ECC PO SCH ×2 (12:50→18:10)
[2018-03-20] MEDS: Aluminum Hydroxide/Magnesium Hydroxide Susp (30 mL) PO PRN (15:49)
[2018-03-20] MEDS ORDERED: guaiFENesin DM 200 mg-20 mg/10 ml UD PO PRN (18:47)
--- NOTE | 2018-03-20 21:58 | PCM.PYCHPN ---
Psychiatric Progress Note - Psychiatric Progress Note Patient seen today, length of contact: 15 minutes Patient Chief Complaint: I am feeling little better. Problems Identified/Issues Discussed: Patient seen, chart reviewed, case discussed with the staff. Issues related to illness and treatment were discussed with the patient and staff. Reported compliant with treatment with no adverse effect. Calm and cooperative. Reported feeling little better. Still having withdrawal symptoms including shaking, sweating, body aches and headache. Awake, alert and oriented x3. Mood reported as anxious. Affect appropriate. Memory intact. Aftercare discussed with the patient. Denied any delusions, auditory or visual hallucinations, suicidal ideations or homicidal ideations at the time of evaluation. Medical Problems: HIV Hypertension Pancreatitis CHF History of CVA with left hand weakness Diagnostic Results: Reviewed DSM 5 Symptoms Update: Some improvement with treatment. Medication Change: No Medical Record Reviewed: Yes Mental Status Examination - Cognitive Function Orientation: Person, Place, Situation, Time Memory: Intact Attention: WNL Concentration: WNL Association: WNL Fund of Knowledge: WN Decription of patient's judgement and insights: Fair - Mood Mood: Anxious - Affect Affect: Other (Appropriate) - Speech Speech: Appropriate - Formal Thought Process Formal Thought Process: No Impairment Psychotic Thoughts and Behaviors: None - Suicidal Ideation Suicidal Ideation: No - Homicidal Ideation Homicidal Ideation: No Goal/Treatment Plan - Goal/Treatment Plan Need for Continued Stay: Remain at risks for inpatient hospitalization, Discharge may exacerbated symptoms, Severe functional impairment Progress Toward Problem(s) and Goals/Treatment Plan: Patient education. Supportive therapy. CBT for relapse prevention. [place] for abstinence. Patient wants to go to a remote computer terminal operator rehabilitation for follow-up care after discharge from the hospital. Estimated Date of D/C: 03/23/18 - Smoking Cessation Smoking Cessation Initiated: No
[2018-03-21] MEDS: LIPASE/PROTEASE/AMYLASE 21,000 U ECC PO SCH ×3 (08:28→16:34)
[2018-03-21] MEDS: Multiple Vitamins Tab PO SCH (10:47)
[2018-03-21] MEDS: Pantoprazole 40 mg EC Tab PO SCH (10:49)
[2018-03-21] MEDS: Abacavir/Lamivudine 600 mg-300 mg Tab PO SCH (10:53)
[2018-03-21] MEDS: Aluminum Hydroxide/Magnesium Hydroxide Susp (30 mL) PO PRN (20:24)
--- NOTE | 2018-03-21 22:14 | PCM.PYCHPN ---
Psychiatric Progress Note - Psychiatric Progress Note Patient seen today, length of contact: 15 minutes Patient Chief Complaint: I am feeling better. Problems Identified/Issues Discussed: Patient seen, chart reviewed, case discussed with the staff. Issues related to illness and treatment were discussed with the patient and staff. Reported compliant with treatment with no adverse effect. Calm and cooperative. Reported feeling better. Patient still has few withdrawal symptoms.. Awake, alert and oriented x3. Mood reported as anxious. Affect appropriate. Memory intact. Aftercare discussed with the patient. Denied any delusions, auditory or visual hallucinations, suicidal ideations or homicidal ideations at the time of evaluation. Medical Problems: HIV Hypertension Pancreatitis CHF History of CVA with left hand weakness Diagnostic Results: Reviewed DSM 5 Symptoms Update: Improving with treatment. Medication Change: No Medical Record Reviewed: Yes Mental Status Examination - Cognitive Function Orientation: Person, Place, Situation, Time Memory: Intact Attention: WNL Concentration: WNL Association: [facility] Fund of Knowledge: [facility] Decription of patient's judgement and insights: Fair - Mood Mood: Anxious (Much less than before) - Affect Affect: Other (Appropriate) - Speech Speech: Appropriate - Formal Thought Process Formal Thought Process: No Impairment Psychotic Thoughts and Behaviors: None - Suicidal Ideation Suicidal Ideation: No - Homicidal Ideation Homicidal Ideation: No Goal/Treatment Plan - Goal/Treatment Plan Need for Continued Stay: Remain at risks for inpatient hospitalization, Discharge may exacerbated symptoms, Severe functional impairment Progress Toward Problem(s) and Goals/Treatment Plan: Patient education. Supportive therapy. CBT for relapse prevention. [place] for abstinence. Patient wants to go to a [facility] rehabilitation for follow-up care after discharge from the hospital. Estimated Date of D/C: 03/23/18 - Smoking Cessation Smoking Cessation Initiated: No
[2018-03-22] MEDS: LIPASE/PROTEASE/AMYLASE 21,000 U ECC PO SCH (08:39)
[2018-03-22] MEDS: Multiple Vitamins Tab PO SCH (09:40)
[2018-03-22] MEDS: Pantoprazole 40 mg EC Tab PO SCH (09:41)
[2018-03-22] MEDS: Abacavir/Lamivudine 600 mg-300 mg Tab PO SCH (09:42)
[2018-03-22 12:54] VITALS: BP 118/95
[2018-03-22 13:13] VITALS: PULSE 103; RESP 19; TEMP 97.6; O2SAT 100
--- NOTE | 2018-03-22 15:15 | PCM.PYCHDC ---
Mental Status Examination - Mental Status Examination Orientation: Person, Place, Situation, Time Memory: Intact Mood: Neutral Affect: Other (Appropriate) Speech: Appropriate Attention: WNL Concentration: WNL Association: WNL Fund of Knowledge: WNL Formal Thought Process: No Impairment Description of patient's judgement and insight: Fair Psychotic Thoughts and Behaviors: None Suicidal Ideation: No Current Homicidal Ideation?: No Discharge Summary - Discharge Note Reason for Hospitalization: Alcohol withdrawal Alcohol use disorder severe Laboratory Data: Reviewed Consultations:: List each consultation separately and include: 1. Reason for request. 2. Findings. 3. Follow-up Summary of Hospital Course include:: 1. Description of specific treatment plan utilized for patients during their course of treatmen. 2. Summarize the time-course for resolution of acute symptoms and/or regressed behaviors. 3. Describe issues identified and worked on during hospitalization. 4. Describe medication utilized. 5. Describe medical problems identified and treated. 6. Reassessment of suicide risk Summary of Hospital Course: Patient is a 57 years old, , currently unemployed, -[place] Citizen male with no previous psychiatric history was admitted due to withdrawing from alcohol. Alcohol: Patient started using alcohol at 17 years of age, increased gradually. Currently he was using 5-6 cans of beer daily each of 24 ounces. Last drink was yesterday. History of 2 detox but no rehabs. History of cocaine use in the past. Last used cocaine 2005. Patient quit smoking 3-4 years ago.. Patient has permanent defibrillator and history of cranial aneurysm repair. Patient was born in [place] and has high school graduation. Patient is not working for last 1 week. 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 Has 2 grown up children. Lives alone. His height is 5 feet 10 inches and weight is 160 pounds. During his stay in the hospital patient was treated with Librium taper for alcohol withdrawal symptoms. Patient was also started on other when necessary medications and also his home medications. Patient was attending groups and other activities on the unit. With above treatment patient started feeling better and had no withdrawal symptoms. Today patient was ready for discharge from the hospital. At the time of evaluation and discharge, patient was awake, alert and oriented 3, had no delusions, no auditory or visual hallucinations, no suicidal ideations or homicidal ideations. Patient was discharged in a stable condition. - Diagnosis (1) Alcohol use disorder, severe, dependence Status: Acute - Final Diagnosis (DSM 5) Condition upon Discharge: STABLE Disposition: HOME/ ROUTINE Follow-up Treatment Plan: [facility] discharge from the hospital. Prescriptions/Medication Reconciliation: amLODIPine [Norvasc] 10 mg PO DAILY #30 tab Carvedilol [Coreg] 25 mg PO BID #60 tab Enalapril Maleate [Vasotec] 20 mg PO BID #60 tab Gabapentin [Neurontin] 300 mg PO TID #90 cap Rosuvastatin Calcium [Crestor] 10 mg PO HS #30 tab traZODone [Desyrel] 100 mg PO HS PRN #30 tab PRN Reason: Insomnia - Smoking Cessation Smoking Cessation Medication prescribed: No - Antipsychotic Medications Pt discharged on 2 or more routine antipsychotic medications: No
== END 2018-03-22 12:00 | disposition home or self-care (01) | DRG 715 ==
LOC: C.ER 21:15 → C.7D 03-19 00:21
PROVIDERS: ADMIT Psychiatry & Neurology Psychiatry; ATTEND Psychiatry & Neurology Psychiatry
PROC: HZ2ZZZZ Detoxification Services for Substance Abuse Treatment (ICD-10-PCS; principal; 2018-03-19)
PROC: HZ46ZZZ Group Counseling for Substance Abuse Treatment, Psychoeducation (ICD-10-PCS; 2018-03-19)
PROC: HZ59ZZZ Individual Psychotherapy for Substance Abuse Treatment, Supportive (ICD-10-PCS; 2018-03-19)
DX: F10.230 Alcohol dependence with withdrawal, uncomplicated (principal); F14.21 Cocaine dependence, in remission; I11.0 Hypertensive heart disease with heart failure; I50.9 Heart failure, unspecified; I48.91 Unspecified atrial fibrillation; Z21 Asymptomatic human immunodeficiency virus [HIV] infection status; Z87.891 Personal history of nicotine dependence; Z86.73 Personal history of transient ischemic attack (TIA), and cerebral infarction without residual deficits